=== PATIENT | female | born 1955 | race Caucasian/White ===

== ENCOUNTER 2019-02-28 10:00 | Outpatient (CLI) | payer OTHER | END 2019-02-28 10:12 | disposition home or self-care (01) | LOC: TOM 10:00 | DX: M54.5 Low back pain (principal) ==

== ENCOUNTER 2021-03-18 14:23 | Outpatient (CLI) | payer OTHER | END 2021-03-18 14:37 | disposition home or self-care (01) | LOC: TOM 14:23 | PROVIDERS: ATTEND Internal Medicine | DX: M47.896 Other spondylosis, lumbar region (principal); M54.5 Low back pain ==

== ENCOUNTER 2023-10-08 18:17 | Emergency (ER) | payer OTHER ==
[~2023-10-08] VITALS: Ht 157.5 cm; Wt 49.9 kg
[2023-10-08] MEDS ORDERED: VITAMIN D31250 MCG PO (18:21)
[2023-10-08 19:25] LABS: HEMATOCRIT 44.1 % (36.0-45.00); HEMOGLOBIN 15.2 g/dL (12.0-15.00); MEAN CELL VOLUME 88.8 fL (80.00-100.00); MEAN CORPUSCULAR HEMOGLOBIN 30.6 pg (27.00-32.0); MEAN CORPUSCULAR HGB CONC 34.4 g/dl (32.0-36.0); PLATELET COUNT 268 K/uL (150-450); RED BLOOD COUNT 4.96 M/uL (4.00-6.00); RED CELL DISTRIBUTION WIDTH 12.8 % (11.5-14.5)
[2023-10-08 19:41] LABS: CALCIUM 9.4 mg/dL (8.5-10.1); CREATININE SERUM 0.59 mg/dL (0.55-1.02); GFR 101.67; POTASSIUM 3.88 mEq/L (3.5-5.1)
== END 2023-10-08 21:15 | disposition home or self-care (01) ==
LOC: ER 18:17
PROVIDERS: General Practice
DX: R41.3 Other amnesia (principal); Z88.2 Allergy status to sulfonamides